=== PATIENT | female | born 1995 | race African-American/Black ===

== ENCOUNTER 2024-03-01 09:20 | Emergency (ER) | payer MEDICAID ==
[~2024-03-01] VITALS: Ht 157.5 cm; Wt 64.0 kg
[2024-03-01 09:36] VITALS: O2SAT 100
[2024-03-01] MEDS ORDERED: ERYT1OIN6 EACHEYE (09:51)
[2024-03-01 10:00] VITALS: BP 131/75; PULSE 86; RESP 17; TEMP 97
== END 2024-03-01 10:15 | disposition home or self-care (01) ==
LOC: ER 10:15
DX: H10.9 Unspecified conjunctivitis (principal); R50.9 Fever, unspecified; R11.2 Nausea with vomiting, unspecified
CPT/HCPCS: 99281